=== PATIENT | male | born 1985 | race Caucasian/White ===

== ENCOUNTER 2018-02-06 12:36 | Emergency (ER) | payer OTHER ==
[~2018-02-06] VITALS: Ht 177.8 cm; Wt 77.1 kg
[~2018-02-06 12:36] MED LIST: ACETAMINOPHEN-1 EAC1 PO; KEFLEX500 MG PO; NORCO 5-325 TA1 EACH PO; XANAX 0.5 MG0.5 MG
[2018-02-06] MEDS ORDERED: IBUPROFEN 600600 M1 PO (13:32)
[2018-02-06] MEDS ORDERED: TRAMADOL 50 MG50 MG PO (13:32)
[2018-02-06 13:39] VITALS: BP 115/71
== END 2018-02-06 13:40 | disposition home or self-care (01) ==
LOC: M.ERS 12:36
DX: M54.6 Pain in thoracic spine (principal); F41.9 Anxiety disorder, unspecified; F17.200 Nicotine dependence, unspecified, uncomplicated